=== PATIENT | female | born 1980 | race Caucasian/White ===

== ENCOUNTER 2016-11-07 22:42 | Inpatient (IN) ==
[2016-11-07 23:04] LABS: Bilirubin,Urine Negative (Negative); Blood,Urine Moderate (Negative); Clarity,Urine Turbid (Clear); Color,Urine Yellow (Yellow); Glucose,Urine (UA) Normal (Normal); Ketones,Urine Negative (Negative); Leukocyte Esterase,Urine Large (Negative); Nitrite,Urine Positive (Negative); Protein,Urine 100 mg/dL (Neg-Trace); Specific Gravity,Urine 1.017 (1.010-1.025); Urobilinogen,Urine Normal (Normal)
[2016-11-07 23:05] LABS: Bacteria,Urine Many per hpf (None-Few); Hyaline Casts,Urine None Seen per lpf (None-Few); Squamous Epithelial Cell,Urine Many per lpf (None-Few); WBC,Urine TNTC per hpf (0-3)
[2016-11-07 23:17] LABS: RBC,Urine 15-30 per hpf (0-3)
[2016-11-07] MEDS ORDERED: 0.9 % Sodium Chloride 1,000 ML IVC ONE (23:40)
[2016-11-07] MEDS ORDERED: Ondansetron 4 MG/2 ML VIAL IVP ONE (23:40)
[2016-11-07] MEDS ORDERED: *HR* Morphine 2 MG/ML SYRINGE IVP ONE (23:40)
[2016-11-07 23:48] LABS: Basophils # 0.1 K/mcL (0.0-0.2); Basophils % 0.3 %; Eosinophils # 0.2 K/mcL (0.0-0.6); Eosinophils % 1.1 %; Hematocrit 41.7 % (35.3-44.9); Hemoglobin 13.5 g/dL (11.5-15.4); Immature Granulocytes % 0.4 % (0-4); Lymphocytes # 0.8 K/mcL (0.6-4.6); Lymphocytes % 4.7 %; Mean Corpuscular HGB Conc 32.4 g/dL (31.6-35.5); Mean Corpuscular Hemoglobin 28.1 pg (28.0-33.3); Mean Corpuscular Volume 86.7 fL (83.0-100.0); Mean Platelet Volume 9.4 fL (9.4-12.4); Monocytes # 0.9 K/mcL (0.0-1.3); Monocytes % 4.8 %; Platelet Count 255 K/mcL (140-400); Red Blood Count 4.81 M/mcL (3.82-4.97); Red Cell Distribution Width 14.7 % (11.5-14.5); Segmented Neutrophils % 88.7 %
--- NOTE | 2016-11-07 23:50 | Emergency Department Note ---
Disposition Clinical Impression: Urinary tract infection Disposition: Admitted As Inpatient Condition: Good Time of Disposition: 14:28 Abdominal Pain HPI - General Chief Complaint: ED Urogenital-Female Stated Complaint: poss uti Time Seen by Provider: 11/07/16 22:46 Source: patient Mode of arrival: private vehicle Limitations: no limitations Nursing Notes Reviewed: Yes Vital Signs Reviewed: Yes - History of Present Illness HPI Narrative: 36-year-old female patient presents to the emergency department with complaint of urinary symptoms. Patient states that she has burning with urination, flank pain and left-sided abdominal pain. Patient denies any previous symptoms similar to this. She denies any vaginal discharge or bleeding. Patient does state that she has had some fever and chills. She also notes some nausea but no vomiting, diarrhea or constipation. She has no known drug allergies and denies any current . Pt Subjective Complaint: abdominal pain, flank pain Onset (ago): day(s) (3) Consistency: constant, Worsening Location: LUQ, LLQ, L flank Pain Severity: severe Pain Scale: 7 Quality: aching, sharp Radiation: none Migration to: no migration Improves with: nothing Worsens with: nothing Associated symptoms: Reports: nausea, fever, chills, dysuria. Denies: vomiting , diarrhea, constipation Treatments prior to arrival: none - Related Data Previous Rx's Medication Instructions Recorded Nicotine Patch [Nicoderm] 21 mg TD DAILY #30 11/10/16 OxyCODONE/APAP 5/325 [Percocet 1 each PO Q6HR PRN #15 tab 11/10/16 5/325 MG] Saccharomyces Boulardii [Florastor] 250 mg PO BID #14 capsule 11/10/16 levoFLOXacin [Levaquin] 750 mg PO DAILY #7 tablet 11/10/16 Allergies Allergy/AdvReac Type Severity Reaction Status Date / Time No Known Allergies Allergy Verified 11/07/16 22:44 All systems ED: reviewed and negative except as stated. Constitutional: Denies: fever, chills Cardiovascular: Denies: chest pain Respiratory: Denies: cough, dyspnea, wheezes Gastrointestinal: Reports: abdominal pain, nausea. Denies: vomiting, diarrhea, constipation Genitourinary: Reports: dysuria, frequency. Denies: discharge, abnormal menses , dyspareunia, genital lesions Musculoskeletal: Reports: back pain. 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 Psychiatric history: Reports: no psych history - Social History Smoking status: Current every day smoker Alcohol use: Reports: rarely Drug use: Reports: marijuana Physical Exam - General Limitations: no limitations General appearance: alert, in no apparent distress - Head Head exam: atraumatic, normocephalic, normal inspection - Eye Eye exam: Present: normal appearance, PERRL - Neck Neck exam: Present: normal inspection, full ROM, trachea midline - Chest Chest inspection: Present: normal inspection, symmetric chest wall rise - Respiratory Respiratory exam: Present: normal lung sounds bilaterally. Absent: respiratory distress - Cardiovascular Cardiovascular exam: Present: regular rate, normal rhythm, normal heart sounds - Abdominal Exam Abdominal exam: Present: soft, tenderness, normal bowel sounds. Absent: distention, guarding, rebound, rigidity Abdominal tenderness: Present: LUQ, LLQ, moderate - Extremities Exam Extremities exam: Present: normal inspection, full ROM. Absent: tenderness, pedal edema - Back Exam Back exam: Present: CVA tenderness (L) - Neurological Exam Neurological exam: Present: alert, oriented X3 - Psychiatric Psychiatric exam: Present: normal affect, normal mood - Skin Skin exam: Present: warm, dry, intact, normal color Course Vital Signs Temperature 98.8 F 11/07/16 22:42 Pulse Rate 112 11/07/16 22:42 Respiratory Rate 18 11/07/16 22:42 Blood Pressure 163/104 11/07/16 22:42 O2 Sat by Pulse Oximetry 94 11/07/16 22:42 Temperature 98.6 F 11/10/16 11:48 Pulse Rate 78 11/10/16 11:48 Respiratory Rate 18 11/10/16 11:48 Blood Pressure 137/89 11/10/16 11:48 O2 Sat by Pulse Oximetry 97 11/10/16 11:48 Oxygen Delivery Oxygen Delivery Room Air Abdominal Pain - Lab Data Lab results reviewed: Yes I reviewed the patient's lab results. Result diagrams: 11/10/16 06:46 11/10/16 06:46 Lab Results 11/07/16 11/07/16 11/07/16 Range/Units 22:55 22:55 23:40 WBC 18.0 H (4.3-11.1) K/mcL RBC 4.81 (3.82-4.97) M/mcL Hgb 13.5 (11.5-15.4) g/dL Hct 41.7 (35.3-44.9) % MCV 86.7 (83.0-100.0) fL MCH 28.1 (28.0-33.3) pg MCHC 32.4 (31.6-35.5) g/dL RDW 14.7 H (11.5-14.5) % Plt Count 255 (140-400) K/mcL MPV 9.4 (9.4-12.4) fL Immature Gran % 0.4 (0-4) % Seg Neutrophils % 88.7 % Lymphocytes % 4.7 % Monocytes % 4.8 % Eosinophils % 1.1 % Basophils % 0.3 % Neutrophils # 16.0 H (1.6-8.9) K/mcL Lymphocytes # 0.8 (0.6-4.6) K/mcL Monocytes # 0.9 (0.0-1.3) K/mcL Eosinophils # 0.2 (0.0-0.6) K/mcL Basophils # 0.1 (0.0-0.2) K/mcL PT (9.4-12.1) Seconds INR APTT (26.0-36.0) Seconds Sodium (136-145) mEq/L Potassium (3.5-4.5) mEq/L Chloride (98-109) mEq/L Carbon Dioxide (19-29) mEq/L BUN (7-20) mg/dL Creatinine (0.57-1.11) mg/dL Est GFR ( Amer) (> 60) Est GFR (Non-Af Amer) (> 60) BUN/Creatinine Ratio (6-26) Glucose (70-99) mg/dL POC Glucose (58-89) Calculated Osmolality (280-300) Lactic Acid (0.5-2.2) mmol/L Calcium (8.6-10.8) mg/dL Total Bilirubin (0.2-1.2) mg/dL Direct Bilirubin (0.0-0.5) mg/dL Indirect Bilirubin (0.0-1.2) mg/dL AST (5-34) Units/L ALT (0-55) Units/L Alkaline Phosphatase (38-126) Units/L Serum Total Protein (6.0-8.3) g/dL Albumin (3.5-5.0) g/dL Globulin (2.4-3.5) g/dL Albumin/Globulin Ratio (1.1-2.2) Amylase (25-125) Units/L Lipase (8-78) Units/L Urine Color Yellow (Yellow) Urine Clarity Turbid A (Clear) Urine pH 6.0 (5.0-8.0) pH Units Ur Specific [place] 1.017 (1.010-1.025) Urine Protein 100 H (Neg-Trace) mg/dL Urine Glucose (UA) Normal (Normal) mg/dL Urine Ketones Negative (Negative) mg/dL Urine Blood Moderate H (Negative) Urine Nitrite Positive A (Negative) Urine Bilirubin Negative (Negative) Urine Urobilinogen Normal (Normal) mg/dL Ur Leukocyte Esterase Large H (Negative) Urine Microscopic RBC 15-30 H (0-3) per hpf Urine Microscopic WBC TNTC H (0-3) per hpf Ur Squamous Epith Cells Many H (None-Few) per lpf Urine Bacteria Many H (None-Few) per hpf Hyaline Casts None Seen (None-Few) per lpf Urine Yeast Test Not Performed Ur Culture Indicated? YES A (NO) Urine Test Negative (Negative) A. baumannii (PCR) (Not Detect) Kaela albicans (PCR) (Not Detect) C. glabrata (PCR) (Not Detect) C. krusei (PCR) (Not Detect) C. parapsilosis (PCR) (Not Detect) C. tropicalis (PCR) (Not Detect) Enterobacteriac sp PCR (Not Detect) E. cloacae complex PCR (Not Detect) Enterococcus sp PCR (Not Detect) E. coli (PCR) (Not Detect) H. influenzae (PCR) (Not Detect) Klebsiella oxytoca PCR (Not Detect) Klebsiella pneumoniae (Not Detect) List. monocytogenes PCR (Not Detect) N. meningitidis (PCR) (Not Detect) Proteus species (PCR) (Not Detect) Serratia marcescens PCR (Not Detect) Staphylococcus sp PCR (Not Detect) Staph aureus (PCR) (Not Detect) mecA-Methicil Res Gene (Not Detect) Streptococcus sp PCR (Not Detect) Group A Strep DNA (Not Detect) Group B Strep (PCR) (Not Detect) Strep pneumoniae (PCR) (Not Detect) P. aeruginosa (PCR) (Not Detect) Raul/B-Vanco Res Genes (Not Detect) KPC (blaKPC) Detect PCR (Not Detect) 11/07/16 11/07/16 11/08/16 Range/Units 23:40 23:40 00:09 WBC (4.3-11.1) K/mcL RBC (3.82-4.97) M/mcL Hgb (11.5-15.4) g/dL Hct (35.3-44.9) % MCV (83.0-100.0) fL MCH (28.0-33.3) pg MCHC (31.6-35.5) g/dL RDW (11.5-14.5) % Plt Count (140-400) K/mcL MPV (9.4-12.4) fL Immature Gran % (0-4) % Seg Neutrophils % % Lymphocytes % % Monocytes % % Eosinophils % % Basophils % % Neutrophils # (1.6-8.9) K/mcL Lymphocytes # (0.6-4.6) K/mcL Monocytes # (0.0-1.3) K/mcL Eosinophils # (0.0-0.6) K/mcL Basophils # (0.0-0.2) K/mcL PT 12.7 H (9.4-12.1) Seconds INR 1.2 APTT 30.2 (26.0-36.0) Seconds Sodium 137 (136-145) mEq/L Potassium 3.6 (3.5-4.5) mEq/L Chloride 103 (98-109) mEq/L Carbon Dioxide 22 (19-29) mEq/L BUN 5 L (7-20) mg/dL Creatinine 0.92 (0.57-1.11) mg/dL Est GFR ( Amer) > 60 (> 60) Est GFR (Non-Af Amer) > 60 (> 60) BUN/Creatinine Ratio 5 L (6-26) Glucose 162 H (70-99) mg/dL POC Glucose (58-89) Calculated Osmolality 285 (280-300) Lactic Acid 3.0 H (0.5-2.2) mmol/L Calcium 9.5 (8.6-10.8) mg/dL Total Bilirubin 0.6 (0.2-1.2) mg/dL Direct Bilirubin 0.2 (0.0-0.5) mg/dL Indirect Bilirubin 0.4 (0.0-1.2) mg/dL AST 13 (5-34) Units/L ALT 14 (0-55) Units/L Alkaline Phosphatase 75 (38-126) Units/L Serum Total Protein 7.3 (6.0-8.3) g/dL Albumin 3.5 (3.5-5.0) g/dL Globulin 3.8 H (2.4-3.5) g/dL Albumin/Globulin Ratio 0.9 L (1.1-2.2) Amylase 28 (25-125) Units/L Lipase 38 (8-78) Units/L Urine Color (Yellow) Urine Clarity (Clear) Urine pH (5.0-8.0) pH Units Ur Specific [place] (1.010-1.025) Urine Protein (Neg-Trace) mg/dL Urine Glucose (UA) (Normal) mg/dL Urine Ketones (Negative) mg/dL Urine Blood (Negative) Urine Nitrite (Negative) Urine Bilirubin (Negative) Urine Urobilinogen (Normal) mg/dL Ur Leukocyte Esterase (Negative) Urine Microscopic RBC (0-3) per hpf Urine Microscopic WBC (0-3) per hpf Ur Squamous Epith Cells (None-Few) per lpf Urine Bacteria (None-Few) per hpf Hyaline Casts (None-Few) per lpf Urine Yeast Ur Culture Indicated? (NO) Urine Test (Negative) A. baumannii (PCR) (Not Detect) Kaela albicans (PCR) (Not Detect) C. glabrata (PCR) (Not Detect) C. krusei (PCR) (Not Detect) C. parapsilosis (PCR) (Not Detect) C. tropicalis (PCR) (Not Detect) Enterobacteriac sp PCR (Not Detect) E. cloacae complex PCR (Not Detect) Enterococcus sp PCR (Not Detect) E. coli (PCR) (Not Detect) H. influenzae (PCR) (Not Detect) Klebsiella oxytoca PCR (Not Detect) Klebsiella pneumoniae (Not Detect) List. monocytogenes PCR (Not Detect) N. meningitidis (PCR) (Not Detect) Proteus species (PCR) (Not Detect) Serratia marcescens PCR (Not Detect) Staphylococcus sp PCR (Not Detect) Staph aureus (PCR) (Not Detect) mecA-Methicil Res Gene (Not Detect) Streptococcus sp PCR (Not Detect) Group A Strep DNA (Not Detect) Group B Strep (PCR) (Not Detect) Strep pneumoniae (PCR) (Not Detect) P. aeruginosa (PCR) (Not Detect) Raul/B-Vanco Res Genes (Not Detect) KPC (blaKPC) Detect PCR (Not Detect) 11/08/16 11/08/16 11/08/16 Range/Units 00:09 05:15 12:15 WBC (4.3-11.1) K/mcL RBC (3.82-4.97) M/mcL Hgb (11.5-15.4) g/dL Hct (35.3-44.9) % MCV (83.0-100.0) fL MCH (28.0-33.3) pg MCHC (31.6-35.5) g/dL RDW (11.5-14.5) % Plt Count (140-400) K/mcL MPV (9.4-12.4) fL Immature Gran % (0-4) % Seg Neutrophils % % Lymphocytes % % Monocytes % % Eosinophils % % Basophils % % Neutrophils # (1.6-8.9) K/mcL Lymphocytes # (0.6-4.6) K/mcL Monocytes # (0.0-1.3) K/mcL Eosinophils # (0.0-0.6) K/mcL Basophils # (0.0-0.2) K/mcL PT (9.4-12.1) Seconds INR APTT (26.0-36.0) Seconds Sodium (136-145) mEq/L Potassium (3.5-4.5) mEq/L Chloride (98-109) mEq/L Carbon Dioxide (19-29) mEq/L BUN (7-20) mg/dL Creatinine (0.57-1.11) mg/dL Est GFR ( Amer) (> 60) Est GFR (Non-Af Amer) (> 60) BUN/Creatinine Ratio (6-26) Glucose (70-99) mg/dL POC Glucose 140 H (58-89) Calculated Osmolality (280-300) Lactic Acid 0.8 (0.5-2.2) mmol/L Calcium (8.6-10.8) mg/dL Total Bilirubin (0.2-1.2) mg/dL Direct Bilirubin (0.0-0.5) mg/dL Indirect Bilirubin (0.0-1.2) mg/dL AST (5-34) Units/L ALT (0-55) Units/L Alkaline Phosphatase (38-126) Units/L Serum Total Protein (6.0-8.3) g/dL Albumin (3.5-5.0) g/dL Globulin (2.4-3.5) g/dL Albumin/Globulin Ratio (1.1-2.2) Amylase (25-125) Units/L Lipase (8-78) Units/L Urine Color (Yellow) Urine Clarity (Clear) Urine pH (5.0-8.0) pH Units Ur Specific [place] (1.010-1.025) Urine Protein (Neg-Trace) mg/dL Urine Glucose (UA) (Normal) mg/dL Urine Ketones (Negative) mg/dL Urine Blood (Negative) Urine Nitrite (Negative) Urine Bilirubin (Negative) Urine Urobilinogen (Normal) mg/dL Ur Leukocyte Esterase (Negative) Urine Microscopic RBC (0-3) per hpf Urine Microscopic WBC (0-3) per hpf Ur Squamous Epith Cells (None-Few) per lpf Urine Bacteria (None-Few) per hpf Hyaline Casts (None-Few) per lpf Urine Yeast Ur Culture Indicated? (NO) Urine Test (Negative) A. baumannii (PCR) Not Detected (Not Detect) Kaela albicans (PCR) Not Detected (Not Detect) C. glabrata (PCR) Not Detected (Not Detect) C. krusei (PCR) Not Detected (Not Detect) C. parapsilosis (PCR) Not Detected (Not Detect) C. tropicalis (PCR) Not Detected (Not Detect) Enterobacteriac sp PCR DETECTED A (Not Detect) E. cloacae complex PCR Not Detected (Not Detect) Enterococcus sp PCR Not Detected (Not Detect) E. coli (PCR) DETECTED A (Not Detect) H. influenzae (PCR) Not Detected (Not Detect) Klebsiella oxytoca PCR Not Detected (Not Detect) Klebsiella pneumoniae Not Detected (Not Detect) List. monocytogenes PCR Not Detected (Not Detect) N. meningitidis (PCR) Not Detected (Not Detect) Proteus species (PCR) Not Detected (Not Detect) Serratia marcescens PCR Not Detected (Not Detect) Staphylococcus sp PCR Not Detected (Not Detect) Staph aureus (PCR) Not Detected (Not Detect) mecA-Methicil Res Gene N/A (Not Detect) Streptococcus sp PCR Not Detected (Not Detect) Group A Strep DNA Not Detected (Not Detect) Group B Strep (PCR) Not Detected (Not Detect) Strep pneumoniae (PCR) Not Detected (Not Detect) P. aeruginosa (PCR) Not Detected (Not Detect) Raul/B-Vanco Res Genes N/A (Not Detect) KPC (blaKPC) Detect PCR Not Detected (Not Detect) - Radiology Data Radiology results reviewed: Yes I reviewed the patient's radiology results. Attestation Statement - Attestation Attestation: I, Fabio Narvaez MD, personally evaluated this patient and discussed their management with the midlevel provicer, PAC/[employer]. I reviewed the midlevel provider 's note and agree with the documented findings, medical decision making, and plan of care. 36-year-old female presents to the emergency department with a complaint of urinary symptoms which started 3 days prior to arrival. She complains of dysuria and has noticed that her urine looks dark and cloudy. No gross hematuria. She also complains of some left flank pain and left mid to lower abdominal pain. There is been fever. She also has had nausea and vomiting. On examination patient is a well-developed well-nourished well-appearing female in no acute distress. She does not appear toxic. She is alert and oriented 3. There is no cyanosis or diaphoresis. Breath sounds are clear and equal bilaterally. Heart regular rate and rhythm. Abdomen is soft with normal bowel sounds. There is mild suprapubic tenderness and moderate left mid abdominal tenderness on direct palpation. Moderate left CVA tenderness. Labs reviewed. WBC 18. Nitrite positive UTI with to numerous to count WBCs. CT of the abdomen and pelvis obtained and consistent with left pyelonephritis. Patient received Rocephin 1 g IV. She was given the option of hospital admission but prefers to try outpatient treatment. She will be given a dose of Levaquin here and treated with Levaquin by mouth. She agrees to return if condition worsens. Prior to getting discharge patient changed her mind decided she was willing to be admitted to the hospital. The hospitalist, Dr. Gutierrez, was consulted and accepted admission of the patient.
[2016-11-08 00:04] LABS: BUN/Creatinine Ratio 5 (6-26); Carbon Dioxide 22 mEq/L (19-29); Chloride 103 mEq/L (98-109); Potassium 3.6 mEq/L (3.5-4.5); Sodium 137 mEq/L (136-145); eGFR For African Americans > 60 (> 60)
[2016-11-08 00:05] LABS: Alanine Aminotransferase 14 Units/L (0-55); Albumin 3.5 g/dL (3.5-5.0); Albumin/Globulin Ratio 0.9 (1.1-2.2); Alkaline Phosphatase 75 Units/L (38-126); Amylase 28 Units/L (25-125); Aspartate Amino Transferase 13 Units/L (5-34); Bilirubin,Direct 0.2 mg/dL (0.0-0.5); Bilirubin,Indirect 0.4 mg/dL (0.0-1.2); Bilirubin,Total 0.6 mg/dL (0.2-1.2); Calcium 9.5 mg/dL (8.6-10.8); Globulin 3.8 g/dL (2.4-3.5); Glucose 162 mg/dL (70-99); Lipase 38 Units/L (8-78); Osmolality,Calculated 285 (280-300); Total Protein 7.3 g/dL (6.0-8.3); eGFR For Non-African Americans > 60 (> 60)
[2016-11-08 00:06] LABS: Blood Urea Nitrogen 5 mg/dL (7-20)
[2016-11-08 00:19] LABS: INR 1.2; Prothrombin Time 12.7 Seconds (9.4-12.1)
[2016-11-08 00:22] LABS: Activated Partial Thrombo Time 30.2 Seconds (26.0-36.0)
[2016-11-08] MEDS ORDERED: *HR* Morphine 2 MG/ML SYRINGE IVP ONE ×2 (01:03→01:29)
[2016-11-08] MEDS ORDERED: 0.9 % Sodium Chloride 1,000 ML IVC ONE ×2 (01:03→11:48)
[2016-11-08] MEDS ORDERED: Ondansetron 4 MG/2 ML VIAL IVP ONE (01:59)
[2016-11-08] MEDS ORDERED: levoFLOXacin 500 MG TABLET PO ONE (01:59)
[2016-11-08] MEDS ORDERED: *HR* HYDROmorphone (PF) 1 MG/ML SYRINGE IVP ONE (03:11)
[2016-11-08] MEDS ORDERED: Ondansetron 4 MG/2 ML VIAL IVP PRN (05:09)
[2016-11-08] MEDS: *HR* Morphine 2 MG/ML SYRINGE IVP PRN ×5 (05:41→21:27)
[2016-11-08] MEDS: 0.9 % Sodium Chloride 1,000 ML IVC SCH ×2 (05:42→17:45)
--- NOTE | 2016-11-08 11:36 | Internal Med History&Physical ---
Date of Encounter: 11/08/16 Time of Encounter: 11:33 Assessment and Plan (1) Severe sepsis Current visit: Yes Status: Acute Diagnosis is based on fever of 11.3, elevated white blood cell count of 18 and elevated lactic acid of 3.0. Confirmed source of infection is urinary with cystitis and left pyelonephritis and indicated by a positive UA and CT findings. We will treat her with ceftriaxone, follow-up urine culture and sensitivities, follow-up blood cultures. We will treat her with normal saline 30 mL per KG and repeat lactic acid level stat. (2) Acute pyelonephritis Current visit: Yes Status: Acute Treatment with IV ceftriaxone and IV fluids as above. We will provide morphine and IV Toradol for pain, (3) Tobacco abuse Current visit: Yes Status: Acute I advised smoking cessation. We will provide nicotine replacement therapy for the duration of the hospitalization. (4) Bilateral hydronephrosis Current visit: Yes Status: Acute could be secondary to chronic reflux versus neurogenic bladder which is unlikely. Her kidney function is normal. However given the CT findings I will consult urology as chronic reflux can lead to chronic pyelonephritis and recurrent infections. (5) DVT prophylaxis Current visit: Yes Status: Acute The patient has sepsis and she is a chronic smoker which makes her a moderate to high risk for DVT while inpatient. We will provide DVT prophylaxis with subcutaneous heparin. (6) Acute cystitis with hematuria Current visit: Yes Status: Acute We will treat her with ceftriaxone. Monitor urine output. Follow-up urine culture and sensitivity and adjust antibiotic therapy accordingly. Internal Medicine - H&P: HPI Chief complaint: Urinary symptoms Admitted From: Emergency Dept Plans for Post Hospital Care: Home History of present illness: Ms. Arrington is a 36 year old female with past medical history significant for Graves' disease who presented to the hospital for urinary symptoms. She reports progressively worsening 3 days of pain and burning with urination and, initially moderate, today was severe, started involving her left flank and caused severe pain described as aching, associated with subjective fevers and chills. She had a temperature spike last night at home which made her come to the hospital. She also reports associated nausea and vomiting for the last 2 days with decreased oral intake. She was given IV morphine in the emergency department which helped relieve the pain. She was found to have a positive UA and received treatment with ceftriaxone and was referred for admission. A 10 point review of systems as above, additionally positive for chronic back pain usually responsive to ibuprofen. Surgical history: Tubal ligation Family history: Type 2 diabetes in the patient's mother Social history: Patient lives at home with her 4 children. 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 She drinks alcohol socially, denies recreational drug use. She smokes one pack of cigarettes a day. Past Med Surg Social Fam HX - Past Medical History Medical history: non-contributory Psychiatric history: no psych history - Social History Smoking Status: Current every day smoker Packs per day: 1 Smokeless Tobacco Status: No Alcohol use: rarely Drug use: marijuana - Family History Mother Living Status: Still Living Hx Family Endocrine Disorder: Yes (DM) Hx Family Medical Disorders: Yes (Liver failure with transplant) Father Living Status: Still Living Hx Family Endocrine Disorder: Yes (DM) Internal Medicine - H&P: Meds No Known Home Drugs 11/08/16 [History] 3 Allergy/AdvReac Type Severity Reaction Status Date / Time No Known Allergies Allergy Verified 11/07/16 22:44 All Systems PM: A 10-system review of systems was performed and is negative for pertinent findings except as documented above in the HPI. - Constitutional Vitals: Temp Pulse Resp BP Pulse Ox 97.4 F L 78 14 93/59 95 11/08/16 10:38 11/08/16 10:38 11/08/16 10:38 11/08/16 10:38 11/08/16 10:38 General appearance: Present: A&O X 3, no acute distress - Eye Eye exam: Present: PERRL, conjuntiva pink, sclera anicteric Pupils: Present: PERRL - Respiratory Respiratory exam: Present: CTAB. Absent: accessory muscle use, rales, rhonchi, wheezes - Cardiovascular Cardiovascular exam: Present: RRR, +S1, +S2. Absent: diastolic murmur, gallop, rubs, systolic murmur - GI/Abdominal GI/Abdominal exam: Present: normal bowel sounds, soft, no peritoneal signs. Absent: distended, tenderness - Additional comments: Left CVA tenderness, suprapubic tenderness elicited to palpation - Extremities Exam Extremities exam: Present: warm, radial pulses palpable and symmetrical. Absent : calf tenderness, cyanotic, pedal edema - Neurological Exam Neurological exam: Present: CN II-XII intact, oriented X3, no focal deficits. Absent: pronater drift, facial droop, speech deficit - Skin Skin exam: Present: dry, intact Internal Med - H&P Results - Labs CBC & Chem 7: 11/07/16 23:40 11/07/16 23:40
[2016-11-08] MEDS ORDERED: Acetaminophen 325 MG TABLET PO PRN (11:50)
[2016-11-08] MEDS ORDERED: Naloxone 0.4 MG/ML INJ IVP PRN (11:50)
[2016-11-08] MEDS: Ketorolac 15 MG/ML VIAL IVP PRN ×2 (12:20→22:35)
[2016-11-08] MEDS: Nicotine 21 MG PATCH.TD24 TD SCH (12:23)
[2016-11-08 12:32] LABS: Acinetobacter baumannii by PCR Not Detected (Not Detect); Enterococcus by PCR Not Detected (Not Detect); Escherichia coli by PCR ***DETECTED*** (Not Detect); Staphylococcus aureus by PCR Not Detected (Not Detect); Streptococcus agalactiae(B)PCR Not Detected (Not Detect); Streptococcus by PCR Not Detected (Not Detect); Streptococcus pneumoniae PCR Not Detected (Not Detect); Streptococcus pyogenes (A) PCR Not Detected (Not Detect); blaKPC Carbapenem-Resist Gene Not Detected (Not Detect)
[2016-11-08 12:33] LABS: Candida albicans by PCR Not Detected (Not Detect); Candida glabrata by PCR Not Detected (Not Detect); Candida krusei by PCR Not Detected (Not Detect); Candida parapsilosis by PCR Not Detected (Not Detect); Candida tropicalis by PCR Not Detected (Not Detect); Klebsiella oxytoca by PCR Not Detected (Not Detect); Klebsiella pneumoniae by PCR Not Detected (Not Detect); Pseudomonas aeruginosa by PCR Not Detected (Not Detect); Serratia marcescens by PCR Not Detected (Not Detect)
[2016-11-08] MEDS: *HR* Heparin 5,000 UNIT/ML VIAL SQ SCH (15:54)
[2016-11-08] MEDS: Ondansetron 4 MG/2 ML VIAL IVP PRN (18:10)
[2016-11-09] MEDS: *HR* Heparin 5,000 UNIT/ML VIAL SQ SCH ×4 (01:00→23:15)
[2016-11-09] MEDS: *HR* Morphine 2 MG/ML SYRINGE IVP PRN ×2 (03:18→08:35)
[2016-11-09] MEDS: Ketorolac 15 MG/ML VIAL IVP PRN ×2 (04:47→11:37)
[2016-11-09 07:04] LABS: Basophils # 0.1 K/mcL (0.0-0.2); Basophils % 0.4 %; Eosinophils # 0.4 K/mcL (0.0-0.6); Hematocrit 34.1 % (35.3-44.9); Immature Granulocytes % 0.3 % (0-4); Lymphocytes # 1.8 K/mcL (0.6-4.6); Lymphocytes % 15.8 %; Mean Corpuscular Hemoglobin 28.6 pg (28.0-33.3); Mean Corpuscular Volume 89.5 fL (83.0-100.0); Monocytes # 0.9 K/mcL (0.0-1.3); Monocytes % 7.6 %; Neutrophils # 8.4 K/mcL (1.6-8.9); Platelet Count 179 K/mcL (140-400); Red Blood Count 3.81 M/mcL (3.82-4.97); Red Cell Distribution Width 14.7 % (11.5-14.5); Segmented Neutrophils % 72.9 %
[2016-11-09 07:17] LABS: BUN/Creatinine Ratio 4 (6-26); Calcium 8.1 mg/dL (8.6-10.8); Carbon Dioxide 25 mEq/L (19-29); Chloride 111 mEq/L (98-109); Glucose 87 mg/dL (70-99); Magnesium 1.7 mg/dL (1.6-2.6); Osmolality,Calculated 288 (280-300); Potassium 3.6 mEq/L (3.5-4.5); Sodium 141 mEq/L (136-145); eGFR For African Americans > 60 (> 60); eGFR For Non-African Americans > 60 (> 60)
[2016-11-09 07:18] LABS: Blood Urea Nitrogen 3 mg/dL (7-20)
--- NOTE | 2016-11-09 07:26 | Urology - Consult Note ---
Date of Encounter: 11/09/16 Time of Encounter: 07:24 - Assessment and Plan (1) Bilateral hydronephrosis Current Visit: Yes Status: Acute Assessment and plan: Patient's hydronephrosis is very mild. No acute urologic need for intervention. Patient will need to follow-up with me in 2-3 weeks. Urology CN:HPI Consult date: 11/09/16 Reason for consult Urology: Hydronephrosis Requesting physician: Nitesh Norton History of present illness: Lynn is a 36 y/o female with history of recent admission secondary to pyelonephritis. Patient had CT scan done which revealed very mild bilateral hydronephrosis. Patient states that she does not have problems with recurrent infections. Past Med Surg Social Fam HX - Past Medical History Medical history: non-contributory Psychiatric history: no psych history - Social History Smoking Status: Current every day smoker Packs per day: 1 Smokeless Tobacco Status: No Alcohol use: rarely Drug use: marijuana - Family History Mother Living Status: Still Living Hx Family Endocrine Disorder: Yes (DM) Hx Family Medical Disorders: Yes (Liver failure with transplant) Father Living Status: Still Living Hx Family Endocrine Disorder: Yes (DM) Medications and Allergies No Known Home Drugs 11/08/16 [History] 3 Allergy/AdvReac Type Severity Reaction Status Date / Time No Known Allergies Allergy Verified 11/07/16 22:44 Review of Systems - Constitutional fever(s), no chills - EENT Nose, mouth and throat: no dizziness - Cardiovascular no chest pain - Respiratory no cough Exam Initial Vital Signs Temp Pulse Resp BP Pulse Ox 98.8 F 112 18 163/104 94 11/07/16 22:42 11/07/16 22:42 11/07/16 22:42 11/07/16 22:42 11/07/16 22:42 - General physical appearance Present: well developed - Respiratory Present: normal respiratory effort - Cardiovascular Cardiovascular exam IM: RRR - Abdomen Abdomen: Present: soft Urology Results - Labs 11/07/16 23:40 11/09/16 06:26 Abnormal lab results WBC 18.0 K/mcL (4.3-11.1) H 11/07/16 23:40 RDW 14.7 % (11.5-14.5) H 11/07/16 23:40 Neutrophils # 16.0 K/mcL (1.6-8.9) H 11/07/16 23:40 PT 12.7 Seconds (9.4-12.1) H 11/08/16 00:09 Chloride 111 mEq/L (98-109) H 11/09/16 06:26 BUN 3 mg/dL (7-20) L 11/09/16 06:26 BUN/Creatinine Ratio 4 (6-26) L 11/09/16 06:26 POC Glucose 140 (58-89) H 11/08/16 05:15 Calcium 8.1 mg/dL (8.6-10.8) L 11/09/16 06:26 Globulin 3.8 g/dL (2.4-3.5) H 11/07/16 23:40 Albumin/Globulin Ratio 0.9 (1.1-2.2) L 11/07/16 23:40 Urine Clarity Turbid (Clear) A 11/07/16 22:55 Urine Protein 100 mg/dL (Neg-Trace) H 11/07/16 22:55 Urine Blood Moderate (Negative) H 11/07/16 22:55 Urine Nitrite Positive (Negative) A 11/07/16 22:55 Ur Leukocyte Esterase Large (Negative) H 11/07/16 22:55 Urine Microscopic RBC 15-30 per hpf (0-3) H 11/07/16 22:55 Urine Microscopic WBC TNTC per hpf (0-3) H 11/07/16 22:55 Ur Squamous Epith Cells Many per lpf (None-Few) H 11/07/16 22:55 Urine Bacteria Many per hpf (None-Few) H 11/07/16 22:55 Ur Culture Indicated? YES (NO) A 11/07/16 22:55 Enterobacteriac sp PCR DETECTED (Not Detect) A 11/08/16 00:09 E. coli (PCR) DETECTED (Not Detect) A 11/08/16 00:09 Diabetes panel 11/09/16 Range/Units 06:26 Sodium 141 (136-145) mEq/L Potassium 3.6 (3.5-4.5) mEq/L Chloride 111 H (98-109) mEq/L Carbon Dioxide 25 (19-29) mEq/L BUN 3 L (7-20) mg/dL Creatinine 0.77 (0.57-1.11) mg/dL Glucose 87 (70-99) mg/dL Calcium 8.1 L (8.6-10.8) mg/dL Calcium panel 11/09/16 Range/Units 06:26 Calcium 8.1 L (8.6-10.8) mg/dL Pituitary panel 11/09/16 Range/Units 06:26 Sodium 141 (136-145) mEq/L Potassium 3.6 (3.5-4.5) mEq/L Chloride 111 H (98-109) mEq/L Carbon Dioxide 25 (19-29) mEq/L BUN 3 L (7-20) mg/dL Creatinine 0.77 (0.57-1.11) mg/dL Glucose 87 (70-99) mg/dL Calcium 8.1 L (8.6-10.8) mg/dL Adrenal panel 11/09/16 Range/Units 06:26 Sodium 141 (136-145) mEq/L Potassium 3.6 (3.5-4.5) mEq/L Chloride 111 H (98-109) mEq/L Carbon Dioxide 25 (19-29) mEq/L BUN 3 L (7-20) mg/dL Creatinine 0.77 (0.57-1.11) mg/dL Glucose 87 (70-99) mg/dL Calcium 8.1 L (8.6-10.8) mg/dL All other labs normal. - Imaging CT scan - abdomen: image reviewed CT scan - pelvis: image reviewed Consult Discharge Plan - Plan Referrals: NONE,PCP [Primary Care Provider] -
[2016-11-09 08:01] LABS: Hemoglobin 10.9 g/dL (11.5-15.4)
[2016-11-09] MEDS: Nicotine 21 MG PATCH.TD24 TD SCH (08:34)
[2016-11-09] MEDS: *HR* OxyCODONE/APAP 5/325 TABLET PO PRN ×2 (13:32→19:50)
[2016-11-09] MEDS: 0.9 % Sodium Chloride 1,000 ML IVC SCH ×2 (13:35→23:16)
--- NOTE | 2016-11-09 15:54 | Internal Med Progress Note ---
Date of Encounter: 11/09/16 Time of Encounter: 15:51 - Assessment and plan (1) Severe sepsis Current Visit: Yes Status: Acute Assessment and plan: Improving cont empirical abx Rocephin will f/u on Urine and Blood cx Cont IV hydration (2) Acute pyelonephritis Current Visit: Yes Status: Acute Assessment and plan: Acute pyelonephritis with UTI Cont empirical abx No signs of urinary retention will tend on WBC cont analgesics (3) Tobacco abuse Current Visit: Yes Status: Acute Assessment and plan: Counseled to quit smoking placed her on nicotine patches (4) Bilateral hydronephrosis Current Visit: Yes Status: Acute Assessment and plan: mild hydro Urology on board no further interventions needed (5) DVT prophylaxis Current Visit: Yes Status: Acute Assessment and plan: on SQ heparin - Subjective Interval history: Ms. Arrington is a 36 year old female with past medical history significant for Graves' disease who presented to the hospital for urinary symptoms. She reports progressively worsening 3 days of pain and burning with urination and, initially moderate, today was severe, started involving her left flank and caused severe pain described as aching, associated with subjective fevers and chills. She had a temperature spike last night at home which made her come to the hospital. She also reports associated nausea and vomiting for the last 2 days with decreased oral intake. Pt was admitted here with sepsis and Left pyelonephritis. Pt was denied any CP / SOB. - Constitutional Vitals: Temp Pulse Resp BP Pulse Ox 98.3 F 73 16 132/88 98 11/09/16 14:33 11/09/16 14:33 11/09/16 14:33 11/09/16 14:33 11/09/16 14:33 General appearance: Present: A&O X 3, no acute distress - Head Head exam: Present: atraumatic, normal inspection - Respiratory Respiratory exam: Present: decreased breath sounds. Absent: rales, respiratory distress, rhonchi, wheezes - Cardiovascular Cardiovascular exam: Present: RRR, +S1, +S2. Absent: systolic murmur - GI/Abdominal GI/Abdominal exam: Present: normal bowel sounds, soft. Absent: distended, rebound, rigid, tenderness - Extremities Exam Extremities exam: Absent: calf tenderness, pedal edema, tenderness - Back Exam Back exam: Present: CVA tenderness (L). Absent: CVA tenderness (R) - Neurological Exam Neurological exam: Present: alert, oriented X3 - Psychiatric Psychiatric exam: Present: normal affect, normal mood Internal Medicine: Result - Labs CBC & Chem 7: 11/09/16 06:26 11/09/16 06:26 Labs: Short CBC 11/09/16 Range/Units 06:26 WBC 11.5 H (4.3-11.1) K/mcL Hgb 10.9 L D (11.5-15.4) g/dL Hct 34.1 L (35.3-44.9) % Plt Count 179 (140-400) K/mcL Neutrophils # 8.4 (1.6-8.9) K/mcL BMP 11/09/16 06:26 Sodium 141 Potassium 3.6 Chloride 111 H Carbon Dioxide 25 BUN 3 L Creatinine 0.77 Glucose 87 Calcium 8.1 L - ABG Interpretation ABG results: PT/INR, D-dimer PT 12.7 Seconds (9.4-12.1) H 11/08/16 00:09 Consult Discharge Plan - Plan Referrals: NONE,PCP [Primary Care Provider] -
[2016-11-10] MEDS: *HR* OxyCODONE/APAP 5/325 TABLET PO PRN ×2 (02:39→10:01)
[2016-11-10] MEDS: *HR* Morphine 2 MG/ML SYRINGE IVP PRN (05:33)
[2016-11-10] MEDS: Ondansetron 4 MG/2 ML VIAL IVP PRN (05:33)
[2016-11-10 06:58] LABS: Basophils % 0.4 %; Eosinophils # 0.1 K/mcL (0.0-0.6); Eosinophils % 1.9 %; Hematocrit 31.6 % (35.3-44.9); Hemoglobin 10.2 g/dL (11.5-15.4); Immature Granulocytes % 0.4 % (0-4); Immature Platelets 1.8 % (1.1-6.1); Lymphocytes # 1.5 K/mcL (0.6-4.6); Lymphocytes % 19.7 %; Mean Corpuscular HGB Conc 32.3 g/dL (31.6-35.5); Mean Corpuscular Hemoglobin 28.3 pg (28.0-33.3); Mean Corpuscular Volume 87.5 fL (83.0-100.0); Mean Platelet Volume 9.3 fL (9.4-12.4); Monocytes # 0.5 K/mcL (0.0-1.3); Monocytes % 6.9 %; Neutrophils # 5.3 K/mcL (1.6-8.9); Platelet Count 220 K/mcL (140-400); Red Blood Count 3.61 M/mcL (3.82-4.97); Red Cell Distribution Width 14.3 % (11.5-14.5); Segmented Neutrophils % 70.7 %
[2016-11-10 07:09] LABS: BUN/Creatinine Ratio 4 (6-26); Calcium 8.3 mg/dL (8.6-10.8); Carbon Dioxide 24 mEq/L (19-29); Chloride 110 mEq/L (98-109); Glucose 103 mg/dL (70-99); Osmolality,Calculated 287 (280-300); Potassium 3.5 mEq/L (3.5-4.5); Sodium 140 mEq/L (136-145); eGFR For African Americans > 60 (> 60); eGFR For Non-African Americans > 60 (> 60)
[2016-11-10 07:11] LABS: Blood Urea Nitrogen 3 mg/dL (7-20)
[2016-11-10] MEDS: Nicotine 21 MG PATCH.TD24 TD SCH (08:29)
[2016-11-10] MEDS: *HR* Heparin 5,000 UNIT/ML VIAL SQ SCH (08:29)
[2016-11-10] MEDS: 0.9 % Sodium Chloride 1,000 ML IVC SCH ×2 (10:03→10:04)
[2016-11-10 11:53] VITALS: BP 137/89
--- NOTE | 2016-11-10 14:39 | Discharge Summary ---
Date of Encounter: 11/10/16 Time of Encounter: 14:36 - Discharge Diagnosis (1) Severe sepsis Priority: Primary Status: Acute (2) Acute pyelonephritis Priority: Primary Status: Acute (3) Tobacco abuse Priority: Secondary Status: Acute (4) Bilateral hydronephrosis Priority: Secondary Status: Acute (5) DVT prophylaxis Priority: Secondary Status: Acute - Discharge Medications Prescriptions: OxyCODONE/APAP 5/325 [Percocet 5/325 MG] 1 each PO Q6HR PRN #15 tab PRN Reason: Moderate Pain levoFLOXacin [Levaquin] 750 mg PO DAILY #7 tablet Nicotine Patch [Nicoderm] 21 mg TD DAILY #30 Saccharomyces Boulardii [Florastor] 250 mg PO BID #14 capsule Home Medications: Nicotine Patch [Nicoderm] 21 mg TD DAILY #30 11/10/16 [Rx] OxyCODONE/APAP 5/325 [Percocet 5/325 MG] 1 each PO Q6HR PRN #15 tab 11/10/16 [Rx ] Saccharomyces Boulardii [Florastor] 250 mg PO BID #14 capsule 11/10/16 [Rx] levoFLOXacin [Levaquin] 750 mg PO DAILY #7 tablet 11/10/16 [Rx] Allergies/Adverse Reactions: 3 Allergy/AdvReac Type Severity Reaction Status Date / Time No Known Allergies Allergy Verified 11/07/16 22:44 Date of admission: 11/08/16 12:19 Primary care physician: PCP NONE - Patient Status Disposition: Home, Self-Care Condition: Good Overall status at discharge: patient is back to baseline - Discharge Instructions Follow Up With: NONE,PCP [Primary Care Provider] - Additional Instructions: Need to f/u with PCP in one week - Diet and Activity Activity: increase activity as tolerated Diet: regular diet Hospital course: Ms. Arrington is a 36 year old female with past medical history significant for Graves' disease who presented to the hospital for urinary symptoms. She reports progressively worsening 3 days of pain and burning with urination and, initially moderate, today was severe, started involving her left flank and caused severe pain described as aching, associated with subjective fevers and chills. She had a temperature spike last night at home which made her come to the hospital. She also reports associated nausea and vomiting for the last 2 days with decreased oral intake. Pt was admitted here with severe sepsis, pyelonephritis with UTI. She was started on aggressive IV hydration and empirical abx with Rocephin. Her blood cx 06/08 came back as positive for E. Coli and Urine also growing E. Coli. She remained afebrile and her WBC came down to 7.5. She is tolerating pO intake well. Her left flank pain is also well controlled. So will d/c her home today in stable condition. Recommend to f/u with PCP in one week. - Time Spent with Patient Total time spent providing and/or coordinating discharge services: - Constitutional Vitals: Temp Pulse Resp BP Pulse Ox 98.6 F 78 18 137/89 97 11/10/16 11:48 11/10/16 11:48 11/10/16 11:48 11/10/16 11:48 11/10/16 11:48 General appearance: Present: A&O X 3, no acute distress - Head Head exam: Present: atraumatic, normal inspection - Respiratory Respiratory exam: Present: CTAB. Absent: accessory muscle use, rales, rhonchi, wheezes - Cardiovascular Cardiovascular exam: Present: RRR, +S1, +S2. Absent: diastolic murmur, gallop, rubs, systolic murmur - GI/Abdominal GI/Abdominal exam: Present: normal bowel sounds, soft. Absent: rebound, rigid, tenderness - Extremities Exam Extremities exam: Absent: calf tenderness, pedal edema, tenderness - Neurological Exam Neurological exam: Present: alert, oriented X3 - Psychiatric Psychiatric exam: Present: normal affect, normal mood
== END 2016-11-10 16:11 | disposition home or self-care (01) | DRG 720 ==
LOC: EMEROO 22:42 → 3ANU 22:42 → SUATTDRO 11-08 12:19
PROVIDERS: ADMIT Internal Medicine; ATTEND Family Medicine